=== PATIENT | female | born 1950 | race Caucasian/White ===

== ENCOUNTER → 2016-08-18 | Outpatient (CLI) | payer OTHER ==
[~2016-08-18] MED LIST: FLM4 PO
--- NOTE | 2016-08-18 11:39 | DIAGNOSTIC IMAGING REPORT ---
ANKLE BRACHIAL INDEX COMPLETE ULTRASOUND CLINICAL HISTORY: DECREASED PEDAL PULSE COMPARISON STUDY: None. FINDINGS: The right ankle-brachial index measured with the posterior tibial artery was 0.98 and the dorsalis pedis artery was 0.96. The left ankle-brachial index measured with the posterior tibial artery was 0.97 and the dorsalis pedis artery was 0.95. IMPRESSION: Normal bilateral ankle brachial indices as described above Electronically signed by: Tommie Waller M.D. 08/18/2016 11:37 AM Dictated Date/Time: 08/18/2016 11:36 AM
== END | disposition home or self-care (01) ==
LOC: C.ULTR 10:53
PROVIDERS: ATTEND Family Medicine
DX: R09.89 Other specified symptoms and signs involving the circulatory and respiratory systems (principal)

== ENCOUNTER → 2017-08-28 | Outpatient (CLI) | payer OTHER ==
--- NOTE | 2017-08-28 11:16 | DIAGNOSTIC IMAGING REPORT ---
L-SPINE MIN 4 VIEWS ROUTINE HISTORY: Pain LOW BACK PAIN COMPARISON: None. FINDINGS: There is no fracture. No subluxation. Considerable degenerative disc change L5-S1. IMPRESSION: Considerable degenerative disc change L5-S1. Otherwise negative study The above report was generated using voice recognition software. It may contain grammatical, syntax or spelling errors. Electronically signed by: Yuri Rico M.D. 08/28/2017 11:15 AM Dictated Date/Time: 08/28/2017 11:14 AM
== END | disposition home or self-care (01) ==
LOC: C.RADBC 10:46
PROVIDERS: ATTEND Family Medicine
DX: M54.5 Low back pain (principal)